=== PATIENT | male | born 1955 | race Caucasian/White ===

== ENCOUNTER 2017-12-14 18:54 | Emergency (ER) | payer OTHER ==
[2017-12-14 19:18] VITALS: BMI 21.2
--- NOTE | 2017-12-14 19:21 | PDOC ---
Rapid Medical Evaluation Time Seen by Provider: 12/14/17 19:14 Medical Evaluation: Allergies Allergy/AdvReac Type Severity Reaction Status Date / Time No Known Allergies Allergy Verified 07/07/17 12:04 12/14/17 19:15 Pt presents to the ED because he is unsteady on his feet. He states he has been like this for a couple of days. Says he was seen by another earlier in the day who told him to come get evaluated. Exam: Very unsteady walking. Orders: labs, urine, IV Pt to proceed to ED for further evaluation Discharge Disposition - Diagnosis Unsteady gait - Referrals - Patient Instructions - Post Discharge Activity
[2017-12-14 21:31] LABS: BASO % 0.7 % (0-2.0); HEMATOCRIT 41.5 % (35.4-49); HEMOGLOBIN 13.6 GM/dL (11.7-16.9); LYMPH % 22.7 % (8-40); MCH 27.1 pg (25.7-33.7); MCHC 32.9 g/dl (32.0-35.9); MEAN CELL VOLUME 82.2 fl (80-96); MEAN PLT VOLUME 8.7 fl (7.5-11.1); NEUT % 64.6 % (42.8-82.8); PLATELET COUNT 251 K/MM3 (134-434); RBC 5.05 M/mm3 (4.00-5.60); RDW 16.3 % (11.9-15.9); WHITE BLOOD COUNT 13.6 K/mm3 (4.0-10.0)
[2017-12-14 21:42] LABS: INR 1.04 (0.83-1.09); PROTHROMBIN TIME (PATIENT) 11.8 SEC (9.7-13.0)
[2017-12-14] MEDS ORDERED: SODIUM CHLORIDE 1,000 ML IV STA (21:49)
--- NOTE | 2017-12-14 21:49 | PDOC ---
History of Present Illness - General Chief Complaint: Weakness Stated Complaint: PCP SENT/WEAKNESS Time Seen by Provider: 12/14/17 19:14 History Source: Patient Exam Limitations: No Limitations - History of Present Illness Initial Comments: 12/14/17 22:38 Patient is a 61-year-old male with past medical history of CAD, open heart surgery, psych disorder, who presents to the emergency department today because he is unsteady on his feet. Patient states that his symptoms started 2 days ago. He was seen by his primary care doctor today who told him to come to the ER for evaluation. Patient admits to dizziness that is worse with head movement. Denies fevers, chills, shortness of breath, difficulty breathing, chest pain, palpitations, nausea, vomiting, diarrhea, weakness and headache. Past History - Travel Traveled outside of the country in the last 30 days: No Close contact w/someone who was outside of country & ill: No - Past Medical History Allergies/Adverse Reactions: Allergies Allergy/AdvReac Type Severity Reaction Status Date / Time No Known Allergies Allergy Verified 12/14/17 19:18 Home Medications: Ambulatory Orders Aspirin [ASA -] 81 mg PO DAILY 12/14/17 Clopidogrel Bisulfate [Clopidogrel] 75 mg PO DAILY 12/14/17 Diltiazem [Cardizem -] 15 mg PO DAILY 12/14/17 Furosemide [Lasix] 20 mg PO DAILY 12/14/17 Pantoprazole Sodium [Protonix] 40 mg PO DAILY 12/14/17 Risperidone [Risperdal -] 0.5 mg PO BID 12/14/17 Tamsulosin HCl [Flomax] 0.4 mg PO DAILY 12/14/17 Meclizine HCl [Antivert -] 25 mg PO TID #21 tablet 12/15/17 Cardiac Disorders: Yes COPD: No GI Disorders: Yes (GERD) Psychiatric Problems: Yes - Surgical History Cardiac Surgery: Yes - Suicide/Smoking/Psychosocial Hx Smoking History: Current every day smoker Number of Cigarettes Smoked Daily: 20 Information on smoking cessation initiated: Yes 'Breaking Loose' booklet given: 12/14/17 Review of Systems - Review of Systems Able to Perform ROS?: Yes Comments:: 12/14/17 22:39 CONSTITUTIONAL: Absent: fever, chills, diaphoresis, generalized weakness, malaise, loss of appetite HEENT: Absent: rhinorrhea, nasal congestion, throat pain, throat swelling, difficulty swallowing, mouth swelling, ear pain, eye pain, visual Changes CARDIOVASCULAR: Absent: chest pain, loss of consciousness, palpitations, irregular heart rate, peripheral edema RESPIRATORY: Absent: cough, shortness of breath, dyspnea with exertion, orthopnea, wheezing, stridor, hemoptysis GASTROINTESTINAL: Absent: abdominal pain, abdominal distension, nausea, vomiting, diarrhea, constipation, melena, hematochezia GENITOURINARY: Absent: dysuria, frequency, urgency, hesitancy, hematuria, flank pain, genital pain MUSCULOSKELETAL: Absent: myalgia, arthralgia, joint swelling SKIN: Absent: rash, itching, pallor HEMATOLOGIC/IMMUNOLOGIC: Absent: easy bleeding, easy bruising, lymphadenopathy, frequent infections ENDOCRINE: Absent: unexplained weight gain, unexplained weight loss, heat intolerance, cold intolerance NEUROLOGIC: Present: dizziness, unsteady gait Absent: headache, focal weakness or paresthesias, seizure, mental status changes, bladder or bowel incontinence PSYCHIATRIC: Absent: anxiety, depression, suicidal or homicidal ideation, hallucinations. Is the patient limited Mosotho proficient: No *Physical Exam - Vital Signs Last Vital Signs Temp Pulse Resp BP Pulse Ox 97.2 F L 94 H 18 86/55 100 12/14/17 19:14 12/14/17 19:14 12/14/17 19:14 12/14/17 19:14 12/14/17 19:14 - Physical Exam Comments: 12/14/17 22:41 GENERAL: Well developed, well nourished. Awake and alert. No acute distress. HEENT: Normocephalic, atraumatic. PERRLA, EOMI. No conjunctival pallor. Sclera are non- icteric. Moist mucous membranes. Oropharynx is clear. NECK: Supple. Full ROM. No JVD. Carotid pulses 2+ and symmetric, without bruits. No thyromegaly. No lymphadenopathy. CARDIOVASCULAR: Regular rate and rhythm. No murmurs, rubs, or gallops. Distal pulses are 2+ and symmetric. PULMONARY: No evidence of respiratory distress. Lungs clear to auscultation bilaterally. No wheezing, rales or rhonchi. ABDOMINAL: Soft. Non-tender. Non-distended. No rebound or guarding. No organomegaly. Normoactive bowel sounds. MUSCULOSKELETAL Normal range of motion at all joints. No bony deformities or tenderness. No CVA tenderness. EXTREMITIES: No cyanosis. No clubbing. No edema. No calf tenderness. SKIN: Warm and dry. Normal capillary refill. No rashes. No jaundice. NEUROLOGICAL: Alert, awake, appropriate. Cranial nerves 2-12 intact. No deficits to light touch and temperature in face, upper extremities and lower extremities. No motor deficits in the in face, upper extremities and lower extremities. Normoreflexic in the upper and lower extremities. Normal speech. Toes are down- going bilaterally. Pt with unstable gait. No cerebellar findings. PSYCHIATRIC: Cooperative. Good eye contact. Appropriate mood and affect. ED Treatment Course - LABORATORY CBC & Chemistry Diagram: 12/14/17 21:20 12/14/17 21:20 - ADDITIONAL ORDERS Additional order review: Laboratory Results 12/14/17 21:20 PT with INR 11.80 INR 1.04 12/14/17 21:20 RBC 5.05 MCV 82.2 MCHC 32.9 RDW 16.3 H MPV 8.7 Neutrophils % 64.6 Lymphocytes % 22.7 Monocytes % 8.0 Eosinophils % 4.0 Basophils % 0.7 - RADIOLOGY Radiology Studies Ordered: Category Date Time Status HEAD CT WITHOUT CONTRAST [CT] Stat CT Scan 12/14/17 19:22 Ordered Medical Decision Making - Medical Decision Making 12/15/17 03:42 Pt is a 61 y/o M who presents for 2 days of dizziness and unsteady gait. -Neuro exam with no focal findings, cerebellar testing negative -Lab work is unremarkable. No leukocytosis, H&H stable. No gross electrolyte abnormalities. -EKG: Rate 82 bpm, normal interval, normal axis. Low voltage QRS. Old septal infarct. No acute ST-T wave changes. -Head CT is negative for acute pathology -Pt reports relief of symptoms with meclizine. Prescription sent to pt pharmacy. Gait is now stable and patient requests discharge -Will dc home with PCP follow up. -Return precautions given. Pt understands all dc instructions and all questions were answered. *DC/Admit/Observation/Transfer Diagnosis at time of Disposition: Vertigo - Discharge Dispostion Disposition: HOME Condition at time of disposition: Stable Decision to Admit order: No - Prescriptions Prescriptions: Meclizine HCl [Antivert -] 25 mg PO TID #21 tablet - Referrals Referrals: Ciro Campuzano MD [Primary Care Provider] - - Patient Instructions Printed Discharge Instructions: DI for Vertigo Additional Instructions: You have vertigo. Your head CT was negative today. Please take the meclazine three times a day for the next 7 days Drink plenty of fluids Follow up with your primary care doctor this week. Return to the ED if you have fevers, chills, lightheadedness, worsening dizziness despite treatment or if you have any new or worsening symptoms. - Post Discharge Activity
[2017-12-14 22:12] LABS: ALBUMIN 3.2 g/dl (3.4-5.0); ANION GAP 7 MMOL/L (8-16); BILIRUBIN,TOTAL 0.4 mg/dL (0.2-1.0); BLOOD UREA NITROGEN 10 mg/dL (7-18); CALCIUM 8.5 mg/dL (8.5-10.1); CHLORIDE 102 mmol/L (98-107); CO2 28 mmol/L (21-32); CREATININE 0.8 mg/dL (0.7-1.3); GLUCOSE,RANDOM 103 mg/dL (74-106); POTASSIUM 3.9 mmol/L (3.5-5.1); SGOT/AST 12 U/L (15-37); SGPT/ALT 12 U/L (12-78); SODIUM 137 mmol/L (136-145); TOT PROT 6.9 g/dl (6.4-8.2)
[2017-12-14 22:13] LABS: ALK PHOS 135 U/L (45-117)
[2017-12-14] MEDS ORDERED: MECLIZINE HCL 25 MG TABLET (FP) PO ONE (22:30)
[2017-12-15 02:26] VITALS: BP 140/100; PULSE 85; TEMP 98.6
--- NOTE | 2017-12-15 10:31 | EKG ---
Test Reason : Blood Pressure : / mmHG Vent. Rate : 082 BPM Atrial Rate : 082 BPM P-R Int : 130 ms QRS Dur : 082 ms QT Int : 398 ms P-R-T Axes : 055 -06 071 degrees QTc Int : 464 ms NORMAL SINUS RHYTHM LOW VOLTAGE QRS SEPTAL INFARCT , AGE UNDETERMINED ABNORMAL ECG NO PREVIOUS ECGS AVAILABLE Confirmed by TOMASA MARTINEZ MD ([id number]) on 12/15/2017 10:31:28 AM Referred By: Confirmed By:TOMASA MARTINEZ MD
== END 2017-12-15 03:11 | disposition home or self-care (01) ==
LOC: JER 18:54
DX: R42 Dizziness and giddiness (principal); K21.9 Gastro-esophageal reflux disease without esophagitis; F17.210 Nicotine dependence, cigarettes, uncomplicated; F99 Mental disorder, not otherwise specified
CPT/HCPCS: 36415; 70450-TC; 80053; 82550; 84484; 85025; 85610; 93005; 93010; 99282-25; 99284-25; J7030

== ENCOUNTER 2020-09-22 12:10 | Emergency (ER) | payer OTHER ==
[2020-09-22 12:45] VITALS: BP 115/74; PULSE 83; TEMP 98.4; BMI 22.9
[2020-09-22 14:56] LABS: CHLORIDE 104 mmol/L (98-107); SODIUM 141 mmol/L (136-145)
[2020-09-22 14:58] LABS: ALBUMIN 3.3 g/dl (3.4-5.0); ANION GAP 6 MMOL/L (8-16); BLOOD UREA NITROGEN 13.2 mg/dL (7-18); CALCIUM 9.4 mg/dL (8.5-10.1); CO2 30 mmol/L (21-32); GLUCOSE,RANDOM 204 mg/dL (74-106)
[2020-09-22 15:01] LABS: SGOT/AST 18 U/L (15-37); SGPT/ALT 13 U/L (13-61)
[2020-09-22 15:02] LABS: CREATININE 0.8 mg/dL (0.55-1.3)
[2020-09-22 15:03] LABS: BILIRUBIN,TOTAL 0.4 mg/dL (0.2-1); TOT PROT 6.8 g/dl (6.4-8.2)
[2020-09-22 15:04] LABS: ALK PHOS 146 U/L (45-117); BASO % 0.5 % (0-2.0); EOS % 3.6 % (0-4.5); HEMATOCRIT 38.6 % (35.4-49); HEMOGLOBIN 12.9 GM/dL (11.7-16.9); LYMPH % 24.7 % (8-40); MCH 28.5 pg (25.7-33.7); MCHC 33.5 g/dl (32.0-35.9); MEAN CELL VOLUME 84.9 fl (80-96); MEAN PLT VOLUME 10.5 fl (7.5-11.1); MONO % 8.4 % (3.8-10.2); NEUT % 62.8 % (42.8-82.8); PLATELET COUNT 204 K/MM3 (134-434); RBC 4.55 M/mm3 (4.00-5.60); RDW 13.4 % (11.9-15.9); WHITE BLOOD COUNT 9.5 K/mm3 (4.0-10.0)
[2020-09-22] MEDS ORDERED: BACITRACIN 0.9 GM PACKET ONE (16:05)
[2020-09-22 16:16] LABS: ERYTHROCYTE SEDIMENTATION RATE 18 mm/hr (0-20)
[2020-09-23] MEDS ORDERED: BACITRACIN/POLYMYXIN B SULFATE 15 GM TUBE TP ONE (16:00)
== END 2020-09-22 16:45 | disposition home or self-care (01) ==
LOC: JER 12:10
DX: M25.50 Pain in unspecified joint (principal); S91.101D Unspecified open wound of right great toe without damage to nail, subsequent encounter
CPT/HCPCS: 36415; 73630-TC-RT-FY; 80053; 82962; 85025; 85651; 86140; 87040; 87070; 87186; 87205; 99284-25